=== PATIENT | male | born 1955 ===

== ENCOUNTER → 2018-01-26 14:41 | Outpatient (CLI) | payer OTHER, MEDICAID, SELFPAY ==
[2017-12-05 13:14] VITALS: BMI 20.6
--- NOTE | 2018-01-26 | DI.MRI.S_ITS ---
PROCEDURE: MR LUMBAR SPINE WO/W CON INDICATIONS: SPINAL STENOSIS OF LUMBAR REGION WITH NEUROGENIC C TECHNIQUE: Noncontrast sagittal T1 spin echo and T2 fast spin echo, sagittal STIR, axial T1 and T2 fast spin echo through the lumbar spine. In cases with scoliosis, additional coronal T2 fast spin echo may be performed. After the administration of contrast, sagittal and axial T1 spin echo with fat saturation through the lumbar spine. COMPARISON: [facility], CR, XR LUMBAR SPINE 1V, 12/05/2017, 10:00. None. FINDINGS: Image quality: Excellent. Alignment and curvature: There is normal bony alignment. Marrow: Marrow is of normal overall signal. No acute vertebral body compression fractures. No suspicious marrow enhancement. Spinal cord: Conus medullaris terminates at the L1 level. Visualized spinal cord demonstrates normal signal, without suspicious enhancement. Paraspinous soft tissues: No paravertebral masses or abnormal enhancement. T12-L1: Mild loss of disc height is seen. Loss of disc signal is seen. No significant neural foraminal or central canal narrowing are seen. L1-L2: Mild loss of disc height is seen. Loss of disc signal is seen. No significant neural foraminal or central canal narrowing are seen. L2-L3: The disc height is well-preserved. Loss of disc signal is seen at this level. Mild to moderate disc bulge is seen. Moderate bilateral neural foraminal narrowing is seen. Jsje-dw-[id number] central canal narrowing is seen. L3-L4: The disc height is well-preserved. Loss of disc signal is seen at this level. Mild to moderate disc bulge is seen. L4-L5: The disc height is well-preserved. Loss of disc signal is seen at this level. Moderate disc bulge is seen, which is eccentric to the left. Moderate facet joint hypertrophy is seen. Postoperative changes are seen at this level, with left hemilaminectomy. There is a nonenhancing sequestered disc fragment seen within the central/left region, as on series 8 image 13, series 7 image 8, and on series 4 image 8. Prominent dural fibrosis can be seen at this level, as on series 13. Moderate to severe central canal narrowing is seen. There is moderate to severe bilateral neural foraminal narrowing seen, left worse than right. There is a degree of impingement seen upon the exiting nerve roots. L5-S1: The disc height is well-preserved. Loss of disc signal is seen at this level. Disc bulge is seen at this level. There is a mild central disc protrusion present. Moderate to severe bilateral neural foraminal narrowing is seen, left worse than right. There is a degree of impingement seen upon the exiting nerve roots. Moderate central canal narrowing is seen. IMPRESSION: At the L4-L5 level, there is a sequestered disc fragment seen within the central/left region. Relatively prominent dural fibrosis can be seen at this level. There is moderate to severe central canal narrowing. Moderate to severe bilateral neural foraminal narrowing can be seen at the L4-L5 and L5-S1. Dictated by: Eric Villagran M.D. on 01/26/2018 at 15:12 Approved by: Eric Villagran M.D. on 01/26/2018 at 15:18
== END ==
PROVIDERS: PCP Student in an Organized Health Care Education/Training Program; Visit Provider Orthopaedic Surgery
DX: M48.062 Spinal stenosis, lumbar region with neurogenic claudication (principal)
CPT/HCPCS: 72158; A9579

== ENCOUNTER 2018-03-08 10:25 | Day surgery (SDC) | payer OTHER, MEDICAID, SELFPAY ==
[2017-12-05 13:14] VITALS: BMI 20.6
[2018-02-19 13:44] VITALS: BMI 20.6
[2018-03-08] VITALS (14 sets, daily range): BP systolic 102–131; BP diastolic 66–88; PULSE 55–87; RESP 10–20; TEMP 35.8–36.7; O2SAT 94–100; BMI 20.6; BMI 21.9
--- NOTE | 2018-03-08 | DI.RAD.S_ITS ---
PROCEDURE: XR LUMBAR SPINE 1V INDICATIONS: L4-5 LAMINECTOMY TECHNIQUE: 1 views of the lumbar spine were acquired. COMPARISON: [facility], CR, XR LUMBAR SPINE 1V, 12/05/2017, 10:00. FINDINGS: Single fluoroscopic spot image of the lumbosacral junction demonstrates a metallic instrument at the posterior elements of the lumbar spine at the level of L4-L5. IMPRESSION: Intraoperative fluoroscopy was provided for the referring service. Please consult the operative note for further details. Dictated by: Juan R Evans M.D. on 03/08/2018 at 16:39 Approved by: Juan R Evans M.D. on 03/08/2018 at 16:40
[2018-03-08] MEDS: LACTATED RINGERS 1,000 ML 42 ML IV (11:18)
--- NOTE | 2018-03-08 13:25 | PM.PREOP ---
Pre-operative Note Interval Note Pre-op Check: Yes History & Physical Reviewed by Physician and Yes Exam Performed Changes: No
[2018-03-08 13:46] LABS: Hematocrit 42.1 % (41-53); Hemoglobin 14.4 g/dL (13.5-17.5); Mean Corpuscular HGB Conc 34.1 % (30-36); Mean Corpuscular Hemoglobin 31.9 PG (26-34); Mean Corpuscular Volume 93.6 fL (80-100); Platelet Count 234 X10^3/uL (150-400); Red Cell Distribution Width 12.9 % (11.6-14.8); White Blood Cell Count 11.5 X10^3/uL (4.5-11.0)
[2018-03-08] MEDS: CEFAZOLIN 2 GM/100 ML FROZ.PIGGY IV ×2 (14:25→21:38)
--- NOTE | 2018-03-08 15:30 | SUR.OPER ---
Prone on spine table, head in foam head support, padded chest and pelvic supports, gel pad at knees, lower legs supported by pillows; nipples, genitalia and toes free of pressure, arms secured on foam padded arm boards at <90 degrees abduction. Tape over blanket at thigh secured to table.
[2018-03-08] MEDS: SODIUM CHLORIDE 0.9% 1,000 ML, GENTAMICIN 80 MG IRR (15:37)
[2018-03-08] MEDS: VANCOMYCIN 1,000 MG VIAL 1000 MG TOP (15:37)
[2018-03-08] MEDS: THROMBIN (BOVINE) 5,000 UNIT VIAL 5000 UNIT TOP (15:37)
[2018-03-08] MEDS: BUPIVACAINE 0.25% (PF) 8 ML, fentaNYL 100 MCG INJ (15:53)
[2018-03-08] MEDS: HYDROMORPHONE 2 MG INJ 0.5 MG IV ×4 (16:35→16:50)
--- NOTE | 2018-03-08 16:50 | PM.OP.1 ---
Operative Date/Time/Diagnoses Date of procedure: 03/08/18 Time of procedure: 16:50 Pre-op diagnosis: Recurrent lumbar disc herniation with radiculopathy Post-op diagnosis: same Procedure & Clinicians Procedure: Revision left L4-5 diskectomy Use of microscope Placement of epidural catheter Same procedure as scheduled: Yes Indications: [age] year old male with intractable pain from a recurrent disc herniation. They had failed conservative management and requested operative intervention. Risks and benefits of surgery were discussed and appropriate consents were obtained. Surgeon: Hosea Chau Material Handling Equipment Stevedore: Nayeli Horner Anesthesia Type: General Operative Notes Findings: None Closure Type: primary Specimen(s): none sent Procedure in detail: Patient was brought to the operating room and intubated on the table. They were rolled over on the well-padded prone position on the Antonio table. A time-out was performed. Preoperative antibiotics were given. The back was prepped and draped in standard sterile fashion. Using fluoroscopy for localization, a 3 cm incision was made in the midline, excising the majority of his old scar. We used Bovie to dissect through the lumbodorsal fascia and then subperiosteally dissect the paraspinal muscles off the well-marked left side. As we came down the spinous process we switched over to a Juarez elevator and bluntly dissected out laterally to avoid penetrating the canal. We used a curette to clear the soft tissue off the facet and find the junction with the spinal canal. A marker was placed and x-ray was taken to confirm positioning. We then brought in the microscope. A revision left-sided laminotomy was performed at L4-5. There is a copious amount of scar tissue that was densely adherent to the dura. We had to work to gradually freed up from the bone with a curette and then free up from the soft tissue with a ball probe. Finally were able to start mobilizing it after we had identified the dura and the traversing nerve root as well as the foramen. The dura was carefully retracted medially and the disc was exposed. Bipolar was used for hemostasis. We then performed an annulotomy with a scalpel and then a diskectomy with pituitary. There was 1 large fragment corresponding with his MRI. The remainder was primarily scar tissue and bulging and all of this was cleared off. The ball probe was run into the disc space to make sure there were no further loose fragments. The ball probe was run below the dura to make sure there was no further pressure on the nerves. Everything was decompressed. The wound was irrigated. An epidural catheter was prepared with 8 mL of 0.25% Marcaine and 100 mcg of fentanyl. The dura was carefully depressed and the catheter was advanced 5 cm cephalad underneath remaining lamina without resistance. The fascia was then closed in layers. The epidural catheter was injected without complications. Vancomycin powder was placed in the wound. The superficial and the skin were closed. Sterile dressing was placed. Patient was rolled over extubated brought to recovery room with no complications. Complications: none Condition: stable Disposition: PACU Plan for aftercare: Overnight admission. Up with physical therapy.
[2018-03-08] MEDS: LACTATED RINGERS 1,000 ML 125 ML IV (18:25)
--- NOTE | 2018-03-08 18:45 | PC.NURSE ---
Pt admission assessment finished. Alert/oriented. Primary RN calling MD for pain med orders as pt is reporting 9/10 pain. Oriented to room/call light. IV fluids setup/infusing per order. Neighbor at bedside. Bed alarm on.
[2018-03-08] MEDS: SENNOSIDES 8.6 MG TABLET 17.2 MG PO (21:28)
[2018-03-08] MEDS: DOCUSATE 100 MG CAPSULE PO (21:28)
[2018-03-08] MEDS: HYDROCODONE/ACET 10/325 TABLET 2 TAB PO (21:28)
[2018-03-08] MEDS: GABAPENTIN 300 MG CAPSULE PO (21:29)
[2018-03-08] MEDS: HYDROMORPHONE PCA 6 MG/30 ML PCA.VIAL IV (21:47)
[2018-03-08] MEDS: TEMAZEPAM 15 MG CAPSULE 30 MG PO (22:16)
[2018-03-09] MEDS: GABAPENTIN 300 MG CAPSULE PO (01:14)
[2018-03-09] MEDS: HYDROCODONE/ACET 10/325 TABLET 2 TAB PO ×3 (01:14→09:07)
[2018-03-09 01:19] VITALS: BP 106/76; PULSE 91; RESP 18; TEMP 36.7; O2SAT 97
[2018-03-09] MEDS: LACTATED RINGERS 1,000 ML 125 ML IV (03:12)
[2018-03-09 05:13] VITALS: BP 125/71; PULSE 70; RESP 16; TEMP 36.5; O2SAT 97
[2018-03-09 05:48] LABS: Hematocrit 40.2 % (41-53); Hemoglobin 13.6 g/dL (13.5-17.5)
[2018-03-09] MEDS: CEFAZOLIN 2 GM/100 ML FROZ.PIGGY IV (06:17)
[2018-03-09] MEDS: HYDROMORPHONE PCA 6 MG/30 ML PCA.VIAL IV (06:17)
[2018-03-09 07:25] VITALS: BP 134/81; PULSE 69; RESP 16; TEMP 36.4; O2SAT 97
[2018-03-09] MEDS: ASPIRIN EC 81 MG TABLET PO (09:07)
[2018-03-09] MEDS: DOCUSATE 100 MG CAPSULE PO (09:07)
[2018-03-09] MEDS: AMLODIPINE 5 MG TABLET 10 MG PO (09:07)
--- NOTE | 2018-03-09 09:07 | P.PN_ITS ---
Subjective Date Patient Seen: 03/09/18 Time Patient Seen: 09:06 Interval history: He is much happier. Minimal leg pain. Back pain is tolerable. Feels like he has his leg again. Exam Vital Signs (past 8 hours): - 03/09/18 01:19 03/09/18 05:13 03/09/18 07:25 Temperature 98.1 F 97.7 F 97.6 F Pulse Rate 91 H 70 69 Respiratory Rate 18 16 16 Blood Pressure 106/76 125/71 H 134/81 H Pulse Oximetry 97 97 97 Oxygen Delivery Method Room Air Const Orientation: alert and oriented x3 Back/Spine/Pelvis Other: Dressing clean dry intact. 5/5 motor both lower extremities except for 2/ 5 left footdrop Objective Labs Result Diagrams: 03/09/18 05:23 Labs: Laboratory Results - last 24 hr 03/08/18 03/09/18 13:34 05:23 WBC 11.5 H RBC 4.50 Hgb 14.4 13.6 Hct 42.1 40.2 L MCV 93.6 MCH 31.9 MCHC 34.1 RDW 12.9 Plt Count 234 Assessment & Plan Post-op Postoperative Procedures Operation Date: 03/08/18 13:15 Actual Procedures Side Surgeon p Left Revision L4-5 Discectomy Hosea Chau MD He is doing much better today with respect to pain as well as recovery of his plantar flexion and some footdrop. Mobilize with physical therapy. He should be fine for discharge after this.
[2018-03-09] MEDS: METOPROLOL 25 MG TABLET 75 MG PO (09:08)
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
--- NOTE | 2018-03-09 10:05 | OT.IP.TRT ---
Current Diagnoses Spinal stenosis, lumbar region with neurogenic claudication (03/08/18) Other intervertebral disc displacement, lumbar region (03/08/18) Surgery Performed Operation Date: 03/08/18 13:15 Actual Procedures p Left Revision L4-5 Discectomy - Hosea Chau MD Occupational Therapy Treatment Note M3 OT- IP Subjective and Pain Start: 03/09/18 10:04 Freq: Status: Active Protocol: Document 03/09/18 10:04 [facility] (Rec: 03/09/18 10:05 [facility] [id number]) OT- Subjective Occupational Therapy Visit Type Type Administrative Note Notes Pt has had prior back surgery and therefore has all OT AED and needs already in place, therefore discharge OT eval order.
[2018-03-09 11:30] VITALS: BP 124/73; PULSE 78; RESP 16; TEMP 36.6; O2SAT 97
--- NOTE | 2018-03-09 11:42 | PC.NURSE ---
Pt taken off of LATRINE CLEANER and [place] 10mg has been effective for pain. Pt has worked with PT and he is now waiting for lunch and iv taken out with cath tip intact and dressing to lower back is cdi. Denies any numbness or pain to L. lower extremity. Sitting on the couch dressed.
--- NOTE | 2018-03-09 12:09 | CM.IDA ---
Discharge Planning/Care Management CM Discharge Assessment Start: 03/09/18 12:05 Freq: Status: Active Protocol: Document 03/09/18 12:05 RACQUEL (Rec: 03/09/18 12:09 [facility] [id number]) Discharge Planning Assessment Assigned Cook Chef RACQUEL Advance Directives? No Advance Directives on File No History Provided By Patient Prior Living Arrangements Apartment/Condo Household Members none Type of transporation used prior to Drives own vehicle admit Independent with ADL's Yes Is patient alert and oriented? Yes Comment neighbor/friend drives pt to and from hospital for surgeries Barriers to Discharge No Discharge Plan Home Transportation Arrangement Friend Referrals Initiated None needed Additional Comment Pt's plan is to return home. He is moving indp today and has had many spinal surgeries in the past and feels confident about his return home today. 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 Pt is indp and manages well at home on his own. No barriers to DC today, pt appreciative for the visit. Whiteboard Updated in Patient Room with Yes name and ext. # of Cook Chef JAY Villalobos
== END 2018-03-09 12:34 | disposition home or self-care (01) ==
LOC: OR 10:26 → AC 10:29
PROVIDERS: PCP Student in an Organized Health Care Education/Training Program; Visit Provider Orthopaedic Surgery
PROC: (CPT 63042; principal; 2018-03-08 13:15)
DX: M51.26 Other intervertebral disc displacement, lumbar region (principal); M48.062 Spinal stenosis, lumbar region with neurogenic claudication; F17.220 Nicotine dependence, chewing tobacco, uncomplicated
CPT/HCPCS: 63042; 36415; 72020; 76000; 85014; 85018; 85027; 97161; J0330; J0461; J0690; J1170; J2250; J2405; J2704; J3010